=== PATIENT | female | born 1935 | race Caucasian/White ===

== ENCOUNTER 2018-09-09 14:44 | Emergency (ER) | payer MEDICARE, OTHER ==
[~2018-09-09] VITALS: Ht 160 cm; Wt 60.0 kg
[2018-09-09] MEDS ORDERED: TETANUS, DIPHTHERIA, PERTUSSIS VAC/PF 0.5ML (>7YR OLD) IM ONE (15:15)
[2018-09-09] MEDS ORDERED: LIDOCAINE HCL/EPINEPHRINE 1%-EPI 1:100,000 50 ML VIAL INFIL ONE (15:15)
[2018-09-09] MEDS ORDERED: LIDOCAINE HCL/EPINEPHRINE 1%-EPI 1:100,000 20 ML VIAL INFIL NR (16:15)
[2018-09-09 19:15] VITALS: BP 142/76
[2018-09-09] MEDS ORDERED: BACITRACIN/POLYMYXIN B SULFATE OINT 15GM TOP ONE (19:15)
== END 2018-09-09 19:42 | disposition home or self-care (01) ==
LOC: ER 14:44
DX: S01.111A Laceration without foreign body of right eyelid and periocular area, initial encounter (principal); S50.311A Abrasion of right elbow, initial encounter; S80.211A Abrasion, right knee, initial encounter; I10 Essential (primary) hypertension; E05.90 Thyrotoxicosis, unspecified without thyrotoxic crisis or storm; R90.82 White matter disease, unspecified; W18.39XA Other fall on same level, initial encounter; Y93.89 Activity, other specified; Y92.89 Other specified places as the place of occurrence of the external cause; Y99.8 Other external cause status
CPT/HCPCS: 12011; 70450; 73080; 73562; 90471; 90715; 99284; J3490